=== PATIENT | female | born 1975 | race Caucasian/White ===

== ENCOUNTER 2022-08-13 08:18 | Day surgery (SDC) | payer BC ==
[2022-08-11 11:37] LABS: HCG,QUAL RESULT NEGATIVE (NEGATIVE)
[~2022-08-13] VITALS: Ht 165.1 cm; Wt 77.1 kg
[2022-08-13] MEDS ORDERED: ROCURONIUM BROMIDE 10 MG/ML (ZEMURON) ONE (10:00)
[2022-08-13] MEDS ORDERED: SUGAMMADEX SODIUM 200 MG/2 ML VIAL IV ONE (10:00)
[2022-08-13] MEDS ORDERED: OXYMETAZOLINE HCL 0.05% NASAL SPRAY NS ONE (10:00)
[2022-08-13] MEDS ORDERED: MIDAZOLAM HCL 5 MG/5 ML VIAL ONE (10:00)
[2022-08-13] MEDS ORDERED: ONDANSETRON HCL 4 MG/2 ML VIAL ONE (10:00)
[2022-08-13] MEDS ORDERED: LIDOCAINE 2%, 20 ML MDV ONE (10:00)
[2022-08-13] MEDS ORDERED: LIDOCAINE/EPI 1% 1:100000 20 ML VIAL ONE (10:00)
[2022-08-13] MEDS ORDERED: DESFLURANE 15 MIN GAS INH ONE (10:00)
[2022-08-13] MEDS ORDERED: fentaNYL CITRATE 250 MCG/5 ML AMP ONE (10:00)
[2022-08-13] MEDS ORDERED: LIDOCAINE 1% 10 MG/ML, 20 ML MDV ONE (10:00)
[2022-08-13] MEDS ORDERED: MUPIROCIN 2% TOPICAL OINTMENT 22 GM ONE (10:00)
[2022-08-13] MEDS ORDERED: LR 1,000 ML IV.SOLN IV ONE (10:00)
[2022-08-13] MEDS ORDERED: NS 1000 ML IV.SOLN IV ONE (10:00)
[2022-08-13] MEDS ORDERED: NS IRRIG SOLN 1000 ML IR ONE (10:00)
[2022-08-13] MEDS ORDERED: PROPOFOL 200MG/ 20ML VIAL (DIPRIVAN) IV ONE (10:00)
[2022-08-13] MEDS ORDERED: DEXAMETHASONE SOD PHOSPHATE 4 MG/ML VIAL ONE (10:00)
[2022-08-13] MEDS ORDERED: ACETAMINOPHEN I.V. 1000 MG 100 ML IV ONE (10:08)
[2022-08-13] MEDS ORDERED: LABETALOL 100 MG/ 20ML VIAL IVP PRN (10:45)
[2022-08-13] MEDS ORDERED: METOCLOPRAMIDE HCL 10 MG/2 ML VIAL IVP PRN (10:45)
[2022-08-13] MEDS ORDERED: MEPERIDINE HCL/PF 25 MG/ML DISP.SYRIN IVP PRN (10:45)
[2022-08-13] MEDS ORDERED: MIDAZOLAM HCL 2 MG/2 ML VIAL (VERSED) IVP PRN (10:45)
[2022-08-13] MEDS ORDERED: HYDROmorphone 1 MG/ML INJ. CARTRIDGE IVP PRN ×2 (10:45)
[2022-08-13] MEDS ORDERED: LR 1,000 ML IV SCH (10:45)
[2022-08-13] MEDS ORDERED: hydrALAZINE HCL 20 MG/ML VIAL IVP PRN (10:45)
[2022-08-13] MEDS ORDERED: HYDROmorphone 1 MG/ML INJ. CARTRIDGE ONE (13:16)
[2022-08-13 16:49] VITALS: BP_SYST 124
== END 2022-08-13 15:12 | disposition home or self-care (01) ==
LOC: SDS 08:18 → SMU 08:19 → SDS 15:12
PROVIDERS: ATTEND Otolaryngology
DX: J34.89 Other specified disorders of nose and nasal sinuses (principal); J34.2 Deviated nasal septum; H92.02 Otalgia, left ear; D38.5 Neoplasm of uncertain behavior of other respiratory organs; E11.9 Type 2 diabetes mellitus without complications; E78.5 Hyperlipidemia, unspecified; G47.33 Obstructive sleep apnea (adult) (pediatric); Z99.89 Dependence on other enabling machines and devices; Z20.822 Contact with and (suspected) exposure to COVID-19
CPT/HCPCS: 84703; 36415 ×2; 31256; 30140; 30520; 82962; 82948; 88304; 88311; 87426; U0003; J3490; J1100; J2001 ×2; J2250; J2405; J2704; J3010; J1170; J7120; J7030; J0131

== ENCOUNTER 2023-09-23 06:52 | Day surgery (SDC) | payer BC ==
[~2023-09-23] VITALS: Ht 165.1 cm; Wt 76.2 kg
[2023-09-23 07:24] LABS: HCG,QUAL RESULT NEGATIVE (NEGATIVE)
[2023-09-23] MEDS ORDERED: LR 1,000 ML IV SCH (10:00)
[2023-09-23] MEDS ORDERED: METOCLOPRAMIDE HCL 10 MG/2 ML VIAL IVP PRN (10:00)
[2023-09-23] MEDS ORDERED: HYDROmorphone 1 MG/ML INJ. CARTRIDGE IVP PRN ×2 (10:00)
[2023-09-23] MEDS ORDERED: MEPERIDINE HCL/PF 25 MG/ML DISP.SYRIN IVP PRN (10:00)
[2023-09-23] MEDS ORDERED: NS IRRIG SOLN 1000 ML IR ONE (10:10)
[2023-09-23] MEDS ORDERED: OXYMETAZOLINE HCL 0.05% NASAL SPRAY NS ONE (10:10)
[2023-09-23] MEDS ORDERED: PROPOFOL 200MG/ 20ML VIAL (DIPRIVAN) IV ONE (10:10)
[2023-09-23] MEDS ORDERED: CIPRO 0.3%/DEXAMETH 0.1% OTIC DRP 7.5 ML ONE (10:10)
[2023-09-23] MEDS ORDERED: MIDAZOLAM HCL 5 MG/ML VIAL (VERSED) IV ONE (10:10)
[2023-09-23] MEDS ORDERED: SEVOFLURANE 15 MIN GAS INH ONE (10:10)
[2023-09-23] MEDS ORDERED: DEXAMETHASONE SOD PHOSPHATE 4 MG/ML VIAL ONE (10:10)
[2023-09-23] MEDS ORDERED: LIDOCAINE 2%, 20 ML MDV ONE (10:10)
[2023-09-23] MEDS ORDERED: fentaNYL CITRATE/PF 100 MCG/2 ML AMP ONE (10:10)
[2023-09-23] MEDS ORDERED: ONDANSETRON HCL 4 MG/2 ML VIAL ONE (10:10)
[2023-09-23] MEDS ORDERED: LR 1,000 ML IV.SOLN IV ONE (10:10)
[2023-09-23 10:43] VITALS: O2SAT 100
[2023-09-23] MEDS ORDERED: HYDROmorphone 1 MG/ML INJ. CARTRIDGE ONE (11:07)
[2023-09-23 13:41] VITALS: BP_SYST 118; PULSE 71; RESP 18
== END 2023-09-23 12:58 | disposition home or self-care (01) ==
LOC: SDS 06:52 → SMU 06:53 → SDS 12:58
PROVIDERS: ATTEND Otolaryngology
DX: H65.03 Acute serous otitis media, bilateral (principal); H65.23 Chronic serous otitis media, bilateral; H90.0 Conductive hearing loss, bilateral; H90.3 Sensorineural hearing loss, bilateral; H92.02 Otalgia, left ear; H68.101 Unspecified obstruction of Eustachian tube, right ear; E11.49 Type 2 diabetes mellitus with other diabetic neurological complication; G47.33 Obstructive sleep apnea (adult) (pediatric); G43.909 Migraine, unspecified, not intractable, without status migrainosus; E78.5 Hyperlipidemia, unspecified; Z98.890 Other specified postprocedural states; Z79.899 Other long term (current) drug therapy; Z79.84 Long term (current) use of oral hypoglycemic drugs; Z82.49 Family history of ischemic heart disease and other diseases of the circulatory system; Z83.3 Family history of diabetes mellitus
CPT/HCPCS: 69436; 84703; 82948; J1100; J2250; J2405; J2704; J3010; J1170; J7120; L8699; J2001

== ENCOUNTER 2023-11-16 08:57 | Outpatient (CLI) | payer BC | END 2023-11-16 20:33 | disposition home or self-care (01) | LOC: SNM 08:57 | PROVIDERS: ATTEND Internal Medicine Gastroenterology | DX: R10.13 Epigastric pain (principal); R79.89 Other specified abnormal findings of blood chemistry; R14.0 Abdominal distension (gaseous) | CPT/HCPCS: 78264; A9541 ==